=== PATIENT | male | born 1965 | race African-American/Black ===

== ENCOUNTER 2016-10-25 18:03 | Emergency (ER) | payer OTHER ==
[~2016-10-25] VITALS: Ht 190.5 cm; Wt 90.0 kg
[~2016-10-25 18:03] MED LIST: FOLIC ACID; MULTIVITAMIN1 EAC2 PO; SYNTHROID
[2016-10-25 18:20] LABS: EOSINOPHIL (%) 0.5 % (0-5); HEMATOCRIT 36.8 % (38.0-50.0); IMMATURE GRANULOCYTE (%) 0.3 % (0.0-0.7); IMMATURE GRANULOCYTE COUNT 0.1 K/uL; LYMPHOCYTE COUNT 1.8 K/uL (1.0-2.8); MCH 30.7 PG (29.0-34.0); MCV 90.4 FL (86-99); MEAN PLAT.VOLUME 9.4 uM^3 (9.0-12.4); MONOCYTE (%) 5.4 % (3-12); MONOCYTE COUNT 0.2 K/uL (0-0.8); NEUTROPHIL (%) 47.1 % (45-76); NEUTROPHIL COUNT 1.9 K/uL (1.8-6.4); PLATELET COUNT 143 K/uL (156-360); RBC DIS.WIDTH-CV 12.8 % (11.8-14.6); RBC DIS.WIDTH-SD 41.6 % (39-53); RED BLOOD COUNT 4.07 M/uL (4.00-5.50); WHITE BLOOD COUNT 3.9 K/uL (4.1-10.2)
[2016-10-25 18:33] LABS: AMYLASE 68 IU/L (1-118); CHLORIDE 107 mEq/L (99-109); POTASSIUM 3.3 mEq/L (3.7-5.4)
[2016-10-25 18:34] LABS: SODIUM 142 mEq/L (136-147)
[2016-10-25 18:35] LABS: GLUCOSE 94 mg/dL (70-99)
[2016-10-25 18:37] LABS: ANION GAP 12 MEQ/L (2-14)
[2016-10-25 18:38] LABS: SERUM ETHYL ALCOHOL 186 mg/dL
[2016-10-25 18:39] LABS: GFR ESTIMATE (CALCULATED) > 59 mL/min/
[2016-10-25 18:40] LABS: UREA NITROGEN (BUN) 14 mg/dL (9-23)
[2016-10-25 18:42] LABS: LIPASE 13 U/L (1.0-51.0)
[2016-10-25 19:41] LABS: ADD MEDTOX COMMENT Y; AMPHETAMINE NEGATIVE (500 ng/mL); BARBITURATES NEGATIVE (200 ng/mL); BENZODIAZEPINES NEGATIVE (150 ng/mL); COCAINE PRESUMPTIVE POSITIVE (150 ng/mL); INTERNAL CONTROLS VALID? YES; METHADONE NEGATIVE (200 ng/mL); METHAMPHETAMINE NEGATIVE (500 ng/mL); OPIATES (MORPHINE) NEGATIVE (100 ng/mL); OXYCODONE NEGATIVE (100 ng/mL); PHENCYCLIDINE NEGATIVE (25 ng/mL); PROPOXYPHENE NEGATIVE (300 ng/mL); THC CANNABINOIDS NEGATIVE (50 ng/mL); TRICYCLIC ANTIDEPRESSANTS NEGATIVE (300 ng/mL)
[2016-10-25 19:42] LABS: ADD MIUA? NO; BILIRUBIN NEGATIVE; BLOOD NEGATIVE; COLOR YELLOW ((YELLOW)); GLUCOSE (STRIP) NEGATIVE; KETONES NEGATIVE; LEUKOCYTES NEGATIVE; NITRITE NEGATIVE; PROTEIN (STRIP) 30; SPECIFIC GRAVITY 1.037 (1.000-1.030); UCUL ADDED? NO; UROBILINOGEN 0.2 MG/DL (0.2-1.0)
[2016-10-25 20:11] LABS: BASE EXCESS 1.3 mEq/L (-3 to +3); BICARBONATE 28.7 mEq/L (22-26); CARBOXY HGB 2.5 % (0-5); METHEMOGLOBIN 0.7 % (0-1.5); PCO2 57 mm Hg (35-45); PO2 161 mm Hg (80-100); pH 7.31 (7.35-7.45)
[2016-10-25 20:13] LABS: COMMENTS - BLOOD GASES C+A+; DEVICE VENTILATOR; FI02 40 %; MECHANICAL RATE 14 resp/min; MODE AC; PEEP 5 CM/H20; SITE RR; TIDAL VOLUME 500 ML; TOTAL RESP RATE 14 resp/min
[2016-10-25] MEDS ORDERED: KEFLEX500 MG PO (23:36)
== END 2016-10-26 00:51 | disposition home or self-care (01) ==
LOC: TRA 18:03
PROVIDERS: Emergency Medicine
DX: S31.010A Laceration without foreign body of lower back and pelvis without penetration into retroperitoneum, initial encounter (principal); X99.1XXA Assault by knife, initial encounter; Y92.410 Unspecified street and highway as the place of occurrence of the external cause; F14.10 Cocaine abuse, uncomplicated; F10.10 Alcohol abuse, uncomplicated; R45.1 Restlessness and agitation
CPT/HCPCS: 36600; 71260; 74000; 74177; 80048; 81003; 82150; 82803; 83690; 84999; 85025; 86850; 86900; 86901; 94002; 94799; 99281; 99285; G0480; J0690; J2250; J2704